=== PATIENT | male | born 1995 | race Caucasian/White ===

== ENCOUNTER 2020-12-02 08:48 | Emergency (ER) | payer BC ==
[~2020-12-02] VITALS: Ht 182.9 cm; Wt 149.1 kg
--- NOTE | 2020-12-02 09:08 | NUR ---
CONTACT WITH PT, 2 YR OLD MALE HERE WITH C/O "HAVING SHARP PAINS IN THE LEFT LOWER ABD AND I WAS URINATING BLOOD AND BLOOD CLOTS LAST NIGHT" PT VERBALIZED YES WHEN ASKED PAIN AND BURNING WITH URINATION. PT ABLE TO PROVIDE URINE SPECIMAN. AMANDA BAUER AT BEDSIDE TO CHUY PT. PAIN BEGAN IN BACK 2 DAYS AGO.
--- NOTE | 2020-12-02 09:22 | NUR ---
IV STARTED, LABS DRAWN. NS INFUSING WITHOUT REDNESS/SWELLING. PT TO CT VIA GUILLERMO.
[2020-12-02] MEDS ORDERED: ONDANSETRON 2MG/ML, 2ML IVPush ONE (09:30)
[2020-12-02] MEDS ORDERED: SODIUM CHLORIDE 0.9% 1,000ML IV ONE (09:30)
[2020-12-02] MEDS ORDERED: KETOROLAC 30 MG/1 ML IVPush ONE (09:30)
[2020-12-02 09:38] LABS: BASOPHILS % (AUTO) 1 % (0-1); EOSINOPHILS % (AUTO) 0 % (1-7); LYMPHOCYTES % (AUTO) 14 % (22-44); MEAN CORPUSCULAR HEMOGLOBIN 28.4 pg (27.5-34.5); MEAN CORPUSCULAR HGB CONC 33.5 g/dL (33.2-36.2); MONOCYTES % (AUTO) 7 % (2-9); NEUTROPHILS % (AUTO) 78 % (42-75); PLATELET COUNT 292 x10^3/uL (130-400); RED BLOOD COUNT 5.51 x10^6/uL (4.38-5.82); RED CELL DISTRIBUTION WIDTH 13.6 % (9.4-14.8)
[2020-12-02 09:40] LABS: MD NO
--- NOTE | 2020-12-02 09:40 | NUR ---
PT RETURN TO ROOM. IV INFUSING WITHOUT REDNESS/SWELLING
[2020-12-02] MEDS ORDERED: ONDANSETRON 2MG/ML, 2ML ONE (09:45)
[2020-12-02] MEDS ORDERED: KETOROLAC 30 MG/1 ML ONE (09:45)
--- NOTE | 2020-12-02 09:48 | NUR ---
PT MEDICATED FOR 6-7/10 PAIN ORDERED. UPDATED ON POC.
[2020-12-02 09:51] LABS: ANION GAP 5 mmol/L (5-15); CHLORIDE 106 mmol/L (98-107)
[2020-12-02 09:52] LABS: CREATININE 0.78 mg/dL (0.7-1.3)
[2020-12-02 09:54] LABS: MICROSCOPIC INDICATED
--- NOTE | 2020-12-02 10:11 | NUR ---
PT WITH PAIN DECREASED TO 2-3/10. WAITING FOR TEST RESULTS.
[2020-12-02] MEDS ORDERED: CEFTRIAXONE 1,000 MG in DEXTROSE 5% 50 ML IVPB ONE (11:00)
[2020-12-02 11:04] VITALS: BP 156/55
--- NOTE | 2020-12-02 11:04 | NUR ---
IV ABX COMPLETED. NO S/S OF ADVERSE REACTION. IV DC'D WITH CANNULA INTACT.
== END 2020-12-02 11:25 | disposition home or self-care (01) ==
LOC: ED 11:12
DX: N10 Acute pyelonephritis (principal)
CPT/HCPCS: 36415; 74176; 80048; 81001; 82040; 85025; 87077; 87086; 87186; 96361; 96365; 96375; 99284; J0696; J1885; J2405; J7030